=== PATIENT | female | born 1950 | race Caucasian/White ===

== ENCOUNTER 2016-06-22 10:50 | Outpatient (CLI) | payer MEDICARE, MEDICAID ==
[~2016-06-22] VITALS: Ht 158.8 cm; Wt 79.5 kg
--- NOTE | ~2016-06-22 | HEMODYNAMI ---
PATIENT:ZULY MARES MEDICAL RECORD: [id number] : 50 LOCATION:[facility] ADMISSION DATE: 06/22/16 Generatedon:06/22/201614:03 Patient name: ZULY MARES Patient #: [id number] : 1950 Date of study: 06/22/2016 Page: Of Hemodynamic Procedure Report Patient Data Patient Demographics Procedure consent was obtained First Name: ZULY Gender: Female Last Name: VISHNU : 1950 [facility] Initial: RAVINDER Age: 66 year(s) Patient #: [id number] Race: SSN: [id number] Additional ID: [id number] Contact details Address: [address] [place] [address] State: [place] City: [facility] Zip code: [address] Past Medical History Allergies Allergen Reaction Date Comments Reported Aspirin 03/13/2014 Bactrim 03/13/2014 Other allergy 03/13/2014 vitamin A NEURONTIN Aspirin 06/22/2016 Admission Admission Data Admission Date: 06/22/2016 Admission Time: 10:50 Lab Results Lab Result Date: 06/22/2016 Lab Result Time: 0:00 Biochemistry Name Units Result Min Max Creatinine mg/dl 1.3 --(---*)-- 0.6 1.3 CBC Name Units Result Min Max Hemoglobin g/dl 10.1 *-(----)-- 13.5 17.5 Procedure Procedure Types Cath Procedure Diagnostic Procedure LHC LHC w/Coronaries Miscellaneous Procedures Moderate Sedation up to 15 minutes Procedure Description Procedure Date Procedure Date: 06/22/2016 Procedure Start Time: 13:46 Procedure End Time: 14:03 Procedure Staff Name Function Evelio Shell MD Performing Physician Cas Ferreira RT Scrub Obinna Scales RN Nurse Dee Guerra RT Monitor Procedure Data Cath Procedure Fluoroscopy Diagnostic fluoroscopy Total fluoroscopy Time: 1.2 time: 1.2 min min Diagnostic fluoroscopy Total fluoroscopy dose: 342 dose: 342 mGy mGy Contrast Material Contrast Material Type Amount (ml) Isovue 300 64 Entry Location Entry Primary Successful Side Size Upsize Upsize Entry Closure Succes sful Closure Location (Fr) 1 (Fr) 2 (Fr) Remarks Device Remarks Radial Right 6 Fr Unable artery Short to access artery Femoral Right 5 Fr Exoseal artery Estimated blood loss: 5 ml Diagnostic catheters Device Type Used For End Catheter Placement Cordis 5Fr JL 4.0 Left Coronary Catheter (MP) Angiography Cordis 5Fr 3DRC Catheter Right Coronary (MP) Angiography Cordis 5Fr Pigtail LV Angiography Catheter (MP) Procedure Complications No complications Procedure Medications Medication Administration Route Dosage Oxygen NC 2 l/min Heparin Flush Bag added to field 2 bags (1000units/500ml NS) 0.9% NaCl I.V. 100 ml/hr Fentanyl I.V. 100 mcg Versed I.V. 2 mg Fentanyl I.V. 50 mcg Fentanyl I.V. 50 mcg Hemodynamics Rest HGB: 10.1 (g/dl) Heart Rate: 68 (bpm) Pressure Samples Time Site Value (mmHg) Purpose Heart Use Rate(bpm) 13:57 LV 438/434,270 EDP 72 13:57 LV 127/2,20 EDP 71 13:57 AO 117/57(80) Pullback 67 13:57 LV 124/15,17 Pullback 67 Gradients Valve Time Site 1 Site 2 Mean SEP/DFP Peak To Heart Use (mmHg) (sec/min) Peak Rate (mmHg) (bpm) Aortic 13:57 LV AO 13 19 7 67 124/15,17 117/57(80) Calculations Valve P-P Mean Valve Index Valve Source Name Gradient Area Flow (cm2) Aortic 7 13 7 13 Snapshots Pre Cath Intra NCS Post Cath Vital Signs Time Heart Resp SPO2 etCO2 [id number] NIBP (mmHg) Rhythm Pain Sedation Rate (ipm) (%) (mmHg) (mmHg) Status Level (bpm) 13:34:27 67 17 100 0 0 144/76(124) NSR 0 (11) 10(A) , No pain 13:38:47 67 17 100 0 0 142/69(111) NSR 0 (11) 10(A) , No pain 13:43:05 71 17 95 0 0 122/65(105) NSR 0 (11) 10(A) , No pain 13:47:21 68 18 93 0 0 122/61(100) NSR 0 (11) 9(A) , No pain 13:51:33 68 19 92 0 0 119/66(85) NSR 0 (11) 9(A) , No pain 13:55:41 71 18 94 0 0 104/66(87) NSR 0 (11) 9(A) , No pain 13:59:51 72 18 96 0 0 118/61(88) NSR 0 (11) 9(A) , No pain Medications Time Medication Route Dose Verified Delivered Reason Notes Effec tiveness by by 13:35:30 Oxygen NC 2 Obinna Obinna Per l/min Yordy Scales RN physician RN 13:35:39 Heparin Flush added 2 Obinna Obinna used for Bag to bags Yordy Scales RN procedure (1000units/500ml field RN NS) 13:35:53 0.9% NaCl I.V. 100 Obinna Obinna Per ml/hr Yordy Scales RN physician RN 13:45:08 Fentanyl I.V. 100 Obinna Obinna for [facility] Yordy Scales RN sedation RN 13:45:14 Versed I.V. 2 mg Obinna Obinna for Yordy Scales RN sedation RN 13:53:20 Fentanyl I.V. 50 Obinna Obinna for ron Scales RN sedation RN 13:56:33 Fentanyl I.V. 50 Obinna Obinna for [facility] Yordy Scales RN sedation intelligent systems engineer Log Time Note 13:14:04 Lab Result : Creatinine 1.3 mg/dl 13:14:04 Lab Result : Hemoglobin 10.1 g/dl 13:14:14 Diagnostic Cath status Elective 13:14:16 Obinna Scales RN sent for patient. Start room use. 13:14:17 Time tracking: Regular hours 13:14:21 Plan of Care:Hemodynamics will remain stable., Cardiac rhythm will remain stable., Comfort level will be maintained., Respiratory function will remain adequate., Patient/ family verbilizes understanding of procedure., Procedure tolerated without complication., Recovers from procedure without complications.. 13:24:34 Patient received from Pre/Post Procedure Room to [facility] 1 Alert and oriented. Tansferred to table in Supine position. 13:24:35 Warm blankets applied, and domenico hugger turned on for patient comfort. 13:24:35 Correct patient and procedure confirmed by team. 13:24:36 Signed procedure consent form obtained from patient. 13:24:38 ECG and BP/O2 sat monitors applied to patient. 13:24:38 Full Disclosure recording started 13:33:17 Vital chart was started 13:35:30 Oxygen 2 l/min NC was administered by Obinna Scales RN; Per physician; 13:35:32 Baseline sample Acquired. 13:35:34 Rhythm: sinus rhythm 13:35:39 Heparin Flush Bag (1000units/500ml NS) 2 bags added to field was administered by Obinna Scales RN; used for procedure; 13:35:47 H&P Date Dictated: 06/10/2016 Within 30 days and on chart., H&P Addendum completed by physician on day of procedure. (MUST COMPLETE FOR ALL OUTPATIENTS). 13:35:49 Pre-procedure instructions explained to patient. 13:35:51 Pre-op teaching completed and patient verbalized understanding. 13:35:53 0.9% NaCl 100 ml/hr I.V. was administered by Obinna Scales RN; Per physician; 13:35:55 Family in waiting room. 13:35:57 Patient NPO since Midnight. 13:36:06 Patient allergic to Aspirin 13:36:09 Is the patient allergic to Iodine/contrast media? No. 13:36:10 Is patient on blood thinner?Yes 13:36:13 ACC The patient was administered the following blood thiners within the last 24 hours: ACCPlavix 13:36:15 Patient diabetic? Yes. 13:36:16 If diabetic: On Metformin? No 13:36:19 Previous problem with sedation/anesthesia? No ? 13:36:20 Snore? Yes 13:36:21 Sleep apnea? No 13:36:22 Deviated septum? No 13:36:23 Opens mouth fully? Yes 13:36:24 Sticks out tongue? Yes 13:36:28 Airway obstruction? Yes Asthma 13:36:31 Dentures? No ? 13:36:34 Pre procedure: right dorsailis pedis pulse 2+ Normal; easily identifiable; not easily obliterated 13:36:37 Modified Mando's test Ulnar < 7 seconds 13:36:39 Patient pain scale 0/10 ?. 13:36:44 IV patent on arrival in left hand with 0.9% NaCl at [facility]. 13:36:50 Lab results completed and on chart. 13:36:56 Right Radial & Right Groin area was prepped with chlora-prep and draped in sterile fashion 13:36:56 Alarms reviewed by R. N. 13:36:57 Sharps counted by scrub and verified by R.N. 13:37:01 Use device set Radial Dx 13:37:02 Acist Syringe opened to sterile field. 13:37:03 Medline Cath Pack opened to sterile field. 13:37:03 Bag Decanter opened to sterile field. 13:37:04 Terumo 6Fr Slender Glidesheath opened to sterile field. 13:37:05 St Shaquille 260cm J .035 wire opened to sterile field. 13:37:05 Acist Hand Control opened to sterile field. 13:37:06 Acist Manifold opened to sterile field. 13:37:06 Tegaderm 4 x 4 opened to sterile field. 13:37:07 MBrace Wrist Support opened to sterile field. 13:44:31 Final Timeout: patient, procedure, and site verified with staff and physician. All members of the team are in agreement. 13:44:34 Right Radial site verified by team. 13:44:37 Physical assessment completed. ASA score P 2 - A patient with mild systemic disease as per Evelio Shell MD. 13:44:40 Sedation plan: IV Moderate Sedation Versed, Fentanyl 13:44:46 Procedure started. 13:45:08 Fentanyl 100 mcg I.V. was administered by Obinna Scales RN; for sedation; 13:45:14 Versed 2 mg I.V. was administered by Obinna Scales RN; for sedation; 13:46:32 Local anesthetic to right radial artery with Lidocaine 2% by Evelio Shell MD.INITIAL ACCESS ONLY 13:46:42 A 6 Fr Short sheath was inserted into the Right Radial arteryUnable to access artery 13:48:40 Zero performed for pressure channel P1 13:51:02 Use device set Multipack Set 13:51:04 Terumo 5Fr [place] Sheath opened to sterile field. 13:51:04 Diagnostic Infinity 5Fr Multipack catheter opened to sterile field. 13:52:17 Local anesthetic to right femoral artery with Lidocaine 2% by Evelio Shell MD.ADDITIONAL ACCESS 13:52:24 A 5 Fr sheath was inserted into the Right Femoral artery 13:52:36 A Cordis 5Fr JL 4.0 Catheter (MP) was advanced over the wire and used for Left Coronary Angiography. 13:53:20 Fentanyl 50 mcg I.V. was administered by Obinna Scales RN; for sedation; 13:54:25 Catheter removed. 13:55:11 A Cordis 5Fr 3DRC Catheter (MP) was advanced over the wire and used for Right Coronary Angiography. 13:55:42 Catheter removed. 13:56:18 A Cordis 5Fr Pigtail Catheter (MP) was advanced over the wire and used for LV Angiography. 13:56:33 Fentanyl 50 mcg I.V. was administered by Obinna Scales RN; for sedation; 13:57:40 LV gram done using MURPHY 13:57:41 LV hemodynamics recorded. 13:57:43 Injector settings: Ml/sec: 10, Volume: 20, 13:57:46 Catheter removed. 13:57:54 Cordis 5Fr Exoseal opened to sterile field. 13:58:12 Sheath removed intact; hemostasis achieved with Exoseal to the Right Femoral artery. 13:58:14 Procedure ended.(Physican Out) 13:59:29 Fluoroscopy time 01.20 minutes. 13:59:34 Flurop Dose total: 342 13:59:34 Fluoroscopy dose: 342 mGy 13:59:42 Contrast amount:Isovue 300 64ml. 13:59:44 Sharps counted by scrub and verified by R.N. 13:59:45 Insertion/operative site no bleeding no hematoma. 13:59:48 Post-op/insertion site Right Femoral artery dressed using a 4 x 4 and Tegaderm. 13:59:52 Post right femoral artery:stable, clean and dry 13:59:58 Post Procedure Pulses reassessed and unchanged 14:00:11 Post-procedure physical assessment completed. ASA score P 2 - A patient with mild systemic disease as per Evelio Shell MD. 14:00:13 Post procedure rhythm: unchanged. 14:00:15 Estimated blood loss: 5 ml 14:00:18 Post procedure instruction explained to patient.Patient verbalizes understanding. 14:00:19 Patient needs reinforcement of post procedure teaching. 14:00:40 Procedure type changed to Cath procedure, Diagnostic procedure, LHC, LHC w/Coronaries, Miscellaneous Procedures, Moderate Sedation up to 15 minutes 14:00:44 Procedure Complication : No complications 14:00:46 See physician's report for complete and final results. 14:01:33 Procedure and supply charges have been captured, reviewed, submitted and are correct. 14:03:25 Vital chart was stopped 14:03:27 Report given to Pre/Post Procedure Room. 14:03:29 Patient transfered to Pre/Post Procedure Room with Stretcher. 14:03:32 Procedure ended. 14:03:32 Full Disclosure recording stopped 14:03:37 End room use (Document Last) Device Usage Item Name Manufacture Quantity Catalog Hospital Part Current Minimal Lot# / Number Charge Number Stock Stock Serial# Code Acist Acist 1 16447 454372 092484 824580 20 Syringe Medical Systems Inc Medline Cardinal 1 [id number] 749042 69927 994270 5 Cath Pack Health Bag Microtek 1 909446 25026 130479 5 APE Systems Medical Inc. Terumo 6Fr Terumo 1 [id number] 359070 159861 695695 [address] St Shaquille 1 764225 040598 332694 341514 30 260cm J .035 wire Acist Hand Acist 1 38338 335560 880556 591615 5 Control Medical Systems Inc Acist Acist 1 84466 063417 860462 348079 5 Manifold Medical Systems Inc Tegaderm 4 3M 1 1626W 579218 868839 236820 5 x 4 MBrace Advanced 1 140-0250-00 929640 07183 239699 5 Wrist Vascular Support Dynamics Terumo 5Fr Terumo 1 [id number] 329823 943372 818684 40 [place] Sheath Diagnostic Cardinal 1 [id number] 412772 12307 707109 30 Infinity Health 5Fr Multipack catheter Cordis 5Fr Cardinal 1 933467 5 JL 4.0 Health Catheter (MP) Cordis 5Fr Cardinal 1 700418 5 3DRC Health Catheter (MP) Cordis 5Fr Cardinal 1 945218 5 Pigtail Health Catheter (MP) Cordis 5Fr Cardinal 1 EX500 681884 365380 335625 10 Pressy Signature Audit [place] Stage Time Signature Unsigned Intra-Procedure 06/22/2016 Dee 2:03:46 PM Counts RT(R) Signatures Monitor : Dee Signature : Counts RT Date : Time : [address] [place] [address]
[~2016-06-22 10:50] MED LIST: ACCUPRIL5 MG PO; ACETAMINOPHEN500 M1 PO; ASMANEX0.24 GM INH; COREG6.25 MG PO; DULERA 100 MCG8.8 GM INH; GLIMEPIRIDE4 MG PO; LANTUS INSULIN10 ML SQ; LYRICA25 MG PO; NOVOLOG100 U/M1 SC; PLAVIX75 MG PO; PLENDIL; PLETAL100 MG PO; PRAVACHOL40 MG PO; PRILOSEC20 MG PO; PROAIR HFA8.5 GM INH; PROTONIX40 MG PO; RESTASIS EYE DR30 EA EACH EYE; TOPAMAX25 MG PO; ZYRTEC10 MG PO
[2016-06-22 11:48] VITALS: BP 157/63; Ht 158.8 cm; Wt 79.5 kg
[2016-06-22 11:51] LABS: BASOPHILS 1.2 % (0.0-2.0); EOSINOPHILS 3.4 % (0-7); HEMATOCRIT 31.7 % (36.0-48.0); HEMOGLOBIN 10.1 g/dL (12-16); IMMATURE GRANULOCYTES 0.2 % (0-5); LYMPHOCYTES 19.5 % (15-50); MCH 29.9 pg (26.0-34.0); MCHC 31.9 g/dL (31.0-37.0); MCV 93.8 fL (80.0-100.0); MEAN PLATELET VOLUME 9.3 fL (7.4-10.4); MONOCYTES 7.7 % (2-11); PLATELET COUNT 237 10x3/uL (130-400); RBC 3.38 10x6/uL (4.00-5.40); RDW 13.1 % (11.5-14.5); WBC 6.5 10x3/uL (4.8-10.8)
[2016-06-22] MEDS ORDERED: PROVENTIL HFA6.7 GM INH (11:52)
[2016-06-22] MEDS ORDERED: SINGULAIR10 MG PO (11:55)
[2016-06-22 12:04] LABS: ANION GAP 15.6 mmol/L (8-16); CALCIUM 8.7 mg/dL (8.5-10.1); CARBON DIOXIDE 21.4 mmol/L (21.0-32.0); CREATININE - SERUM 1.3 mg/dL (0.6-1.3)
--- NOTE | 2016-06-22 16:38 | NUR ---
1430-RIGHT WRIST CDI AND RIGHT GROIN CDI, NO HEMATOMA OR BLEEDING NOTED. 1500-NO CHANGES
--- NOTE | 2016-06-23 08:42 | OP ---
PATIENT NAME: ZULY MARES MEDICAL RECORD: [id number] :[birth year] LOCATION:D.CAT ADMISSION DATE: SURGEON: JORGE MATA MD DATE OF OPERATION: 06/22/2016 PROCEDURE: Left heart catheterization, selective coronary angiography, right femoral artery approach. CATHETERS: A 5-Montserratian sheath, 5/4 left and right Jefe, 5/4 pig. The procedure was well tolerated and the patient returned to the [place], sheath removed. Adequate hemostasis obtained. FINDINGS: Left ventriculography in the 30-degree MURPHY view: Normal wall motion and normal systolic function. CORONARY ANATOMY: Left main: Left main is free of disease. LAD: LAD has a proximal to mid portion stenosis of about 70%. That vessel reaches the apex but does not wrap around. CIRCUMFLEX: Circumflex has a large OM1, has about 80% stenosis. The true circumflex itself has about 70% proximal stenosis. RIGHT CORONARY ARTERY: Totally occluded and fills via left to right collaterals. IMPRESSION: Multivessel coronary artery disease, multiple interventions in the past given her underlying diabetes, ____ for coronary bypass grafting. Dr. Richardson will be consulted for this purpose. TRANSINT:[id number] Voice Confirmation ID: [id number] DOCUMENT ID: [id number] JORGE MATA MD at 0842 CC: [id number] DICTATION DATE: 06/22/16 1404 LICENSED SALES ASSISTANT: 06/22/16 2018 [facility] CLI 06/22/16 [place] [id number]
== END 2016-06-22 16:15 | disposition home or self-care (01) ==
LOC: D.CATH 10:50
PROVIDERS: Internal Medicine Interventional Cardiology
DX: I25.119 Atherosclerotic heart disease of native coronary artery with unspecified angina pectoris (principal); E78.5 Hyperlipidemia, unspecified; I10 Essential (primary) hypertension; J44.9 Chronic obstructive pulmonary disease, unspecified

== ENCOUNTER → 2016-07-02 13:08 | Outpatient (CLI) | payer MEDICARE, MEDICAID ==
[2016-06-22 11:48] VITALS: BMI 31.5
[~2016-07-02 13:08] MED LIST changes: +PROVENTIL HFA6.7 GM INH; +SINGULAIR10 MG PO
[2016-07-03 09:12] LABS: HEPATITIS C ANTIBODY <0.1 (0.0-0.9)
== END | disposition home or self-care (01) ==
LOC: D.LAB 13:08
PROVIDERS: Internal Medicine Cardiovascular Disease
DX: Z01.812 Encounter for preprocedural laboratory examination (principal)

== ENCOUNTER → 2016-07-09 07:36 | Outpatient (CLI) | payer MEDICARE, MEDICAID ==
[2016-06-22 11:48] VITALS: BMI 31.5
== END | disposition home or self-care (01) ==
LOC: D.RT 07:36
DX: R06.02 Shortness of breath (principal); I65.23 Occlusion and stenosis of bilateral carotid arteries

== ENCOUNTER 2017-01-03 16:12 | Inpatient (IN) | payer MEDICARE, MEDICAID ==
[2017-01-03 17:14] LABS: BASOPHILS 0.3 % (0-2); EOSINOPHILS 0.6 % (0-7); HEMATOCRIT 28.5 % (36.0-48.0); HEMOGLOBIN 9.6 g/dL (12-16); IMMATURE GRANULOCYTES 0.5 % (0-5); MCH 29.6 pg (26.0-34.0); MCHC 33.7 g/dL (31.0-37.0); MEAN PLATELET VOLUME 9.9 fL (7.4-10.4); NEUTROPHILS 85.6 % (40-80); PLATELET COUNT 243 10x3/uL (130-400); RBC 3.24 10x6/uL (4.00-5.40); RDW 13.4 % (11.5-14.5); WBC 15.5 10x3/uL (4.8-10.8)
[2017-01-03 17:50] LABS: ALBUMIN 2.1 g/dL (3.4-5.0); ANION GAP 21.8 mmol/L (8-16); BILIRUBIN - TOTAL 0.62 mg/dL (0.2-1.3); CARBON DIOXIDE 14.9 mmol/L (21.0-32.0); CREATININE - SERUM 1.6 mg/dL (0.6-1.3); POTASSIUM - SERUM 3.7 mmol/L (3.5-5.1); PROTEIN - SERUM 5.6 g/dL (6.4-8.2); TROPONIN-I 0.054 ng/mL (0.000-0.060)
[2017-01-03 18:02] LABS: CALCIUM 7.9 mg/dL (8.5-10.1)
[2017-01-03 20:00] VITALS: BP 153/55
--- NOTE | 2017-01-03 20:48 | NUR ---
patient arrived from the ER via wheelchair, iv in left forearm. patient is alert and oriented to room and call light. family is at bedside. call light in reach.
[2017-01-03 21:11] VITALS: BP 153/55; BMI 30.6
--- NOTE | 2017-01-03 21:49 | NUR ---
PATIENT IS ALERT WATCHING TV, SPOUSE AT BEDSIDE. PATIENT REFUSES TO TAKE ANY TYPE OF INSULIN TONIGHT. CALL LIGHT IN REACH.
--- NOTE | 2017-01-04 01:15 | NUR ---
ASSESSMENT COMPLETED PER ADMIT PACKET. EYES CLOSED RESPIRATIONS WITH EASE AND UNLABORED.
[2017-01-04 04:00] VITALS: BP 141/56
[2017-01-04 05:50] LABS: ANION GAP 21.4 mmol/L (8-16); CALCIUM 7.5 mg/dL (8.5-10.1); CARBON DIOXIDE 14.8 mmol/L (21.0-32.0); CREATININE - SERUM 1.5 mg/dL (0.6-1.3); POTASSIUM - SERUM 4.2 mmol/L (3.5-5.1)
[2017-01-04 06:03] LABS: BASOPHILS 0.4 % (0-2); EOSINOPHILS 0.7 % (0-7); HEMATOCRIT 26.3 % (36.0-48.0); HEMOGLOBIN 8.7 g/dL (12-16); IMMATURE GRANULOCYTES 0.2 % (0-5); LYMPHOCYTES 6.9 % (15-50); MCH 29.4 pg (26.0-34.0); MCHC 33.1 g/dL (31.0-37.0); MCV 88.9 fL (80.0-100.0); MONOCYTES 6.6 % (2-11); NEUTROPHILS 85.2 % (40-80); PLATELET COUNT 247 10x3/uL (130-400); RBC 2.96 10x6/uL (4.00-5.40); RDW 13.7 % (11.5-14.5)
--- NOTE | 2017-01-04 07:40 | NUR ---
REPORT RECEIVED FROM OPERATIONS CONTROLLER NURSE. CALL LIGHT IN REACH.
--- NOTE | 2017-01-04 08:21 | NUR ---
ASSESSMENT COMPLETED. AM MEDS ADMINISTERED EXCEPT FOR ALFONSO AND TOPAMAX. STATES SHE DOES NOT TAKE TOPAMAX ANYMORE AND SHE TAKES ALFONSO AT NIGHT. SCDs EXPLAINED AND APPLIED TO BLE. CARE PLAN WRITTEN ON BOARD AND REVIEWED WITH PATIENT. TYLENOL PO PER C/O 10 TO RIGHT CHEST. STATES SHE WANTED A PAIN CREAM THAT SHE USED TO TAKE WHEN SHE ORTHO SURGERY. EXPLAINED TO PATIENT THAT WE DO NOT GIVE THAT. VERBALIZED UNDERSTANDING. [place] HAT PLACED IN BR FOR URINE MEASUREMENT. PASSWORD OBTAINED AND PLACED IN COMPUTER. IV TUBING LABELED. CALL LIGHT IN REACH. WILL CONTINUE WITH PLAN OF CARE.
[2017-01-04 08:30] VITALS: BP 148/62
--- NOTE | 2017-01-04 10:00 | NUR ---
NO NEEDS VOICED AT THIS TIME. CALL LIGHT IN REACH.
[2017-01-04 11:39] VITALS: BP 138/54
--- NOTE | 2017-01-04 12:45 | NUR ---
WENT TO TAKE PATIENT'S BLOOD SUGAR AND IT WAS 516. STATES IT IS SO HIGH BECAUSE WE HAVE NOT GIVEN HER HER INSULIN TODAY. EXPLAINED TO PATIENT THAT I HAVE GIVEN HER HER LANTUS AND THE FALL INTERN GAVE HER HUMALOG @ 0618. PATIENT STARTED ARGUING ABOUT NOT HAVING HER INSULIN. I EXPLAINED TO HER OVER AND OVER IN FRONT OF HER FAMILY. HER SON EVEN SAID THAT SHE NEEDS TO LISTEN BUT PATIENT CONTINUED TO ARGUE. SHE THEN GOT MAD THAT I HAD TO GIVE HER EYE DROPS BECAUSE SHE'S HAD THEM ONCE TODAY. I EXPLAINED TO HER THAT THEY ARE ORDERED MORE THAN ONCE A DAY. HER SON KEPT ASKING PATIENT TO LISTEN TO ME BUT SHE WOULDN'T. I WENT TO GET THE CHARGE NURSE TO EXPLAIN TO HER. PATIENT THEN SAID SHE KNEW I HAD GIVEN HER THE INSULIN.
--- NOTE | 2017-01-04 13:45 | NUR ---
PT REC'D FROM MANUEL SENIOR. SITTING UP IN BED WITH AT BEDSIDE. AAOX4. NO COMPLAINTS. RATING CURRENT GENERALIZED PAIN 6/10. PT STATES SHE DOES NOT WANT ANY TYLENOL BECAUSE IT DOESN'T WORK. REGULAR HEART RATE AND RHYTHM. LUNG SOUNDS HAVE CRACKLES AND RHONCHI NOTED TO BILAT UPPER LOBES. DIMINISHED BILAT TO LOWER LOBES. BOWEL SOUNDS ACTIVE X4 QUADS. SKIN CLEAN, DRY, AND INTACT. PIV TO L AC FREE OF REDNESS AND SWELLING. SCD'S ON. BED LOW, CALL LIGHT IN REACH, DENIES NEEDS. CPOC.
--- NOTE | 2017-01-04 14:02 | NUR ---
patient recieved 12 units of insulin at this time for bs 547. iv intact. no complaints. call light within reach.
--- NOTE | 2017-01-04 14:05 | NUR ---
HANDED PATIENT OVER TO MANUEL ZAMBRANO.
[2017-01-04 15:07] VITALS: BP 136/60
--- NOTE | 2017-01-04 16:30 | NUR ---
CURRENT FSBS 448. HAS COME DOWN FROM 547. DR. GUPTA AWARE. 12 UNITS OF INSULIN ADMINISTERED PER SS. BED LOW, CALL LIGHT IN REACH, DENIES NEEDS. CPOC.
[2017-01-04 20:00] VITALS: BP 133/56
--- NOTE | 2017-01-04 23:24 | NUR ---
PATIENT IS RESTING WELL IN BED, SPOUSE IS AT BEDSIDE. CALL LIGHT IN REACH.
[2017-01-05 04:00] VITALS: BP 119/85
--- NOTE | 2017-01-05 08:08 | NUR ---
AWAKE AND ALERT. ORIENTED X3. NO C/O AT THIS TIME. LUNGS ARE CLEAR ON LEFT BUT DIMINISHED ON RIGHT SIDE. REPORTS PRODUCTIVE COUGH WITH BROWNISH SPUTUM. SKIN IS INTACT WITHOUT REDNESS. IV TO LEFT AC IS PATENT WITHOUT REDNESS AT INSERTION SITE. AT BEDSIDE. DENIES NEEDS.
[2017-01-05 08:11] VITALS: BP 119/72
--- NOTE | 2017-01-05 10:43 | NUR ---
UP IN CHAIR AT BEDSIDE. LINENS CHANGED PER STAFF. WILL ASSIST WITH SHOWER.
--- NOTE | 2017-01-05 12:00 | NUR ---
FSBS 193. GIVEN 2 UNITS HUMALOG SUBQ PER SS.
[2017-01-05 12:35] VITALS: BP 143/61
--- NOTE | 2017-01-05 13:25 | NUR ---
ATE ALL OF LUNCH. C/O UPPER CHEST AND BACK PAIN LEVEL 10. REQUESTED AND GIVEN ONE 500MG TYLENOL FOR SAME. WILL MONITOR. LUNGS ARE UNCHANGED FROM THIS AM. SKIN IS WARM AND DRY. HEART RATE IS 76 AND REGULAR.
[2017-01-05 17:27] VITALS: BP 122/82
--- NOTE | 2017-01-05 18:00 | NUR ---
REQUESTED AND GIVEN ONE PERCOCET PO FOR PAIN MANAGEMENT PROIR TO PLACING CPM. PLACED ON LEFT KNEE AT THIS TIME..ATE MOST OF SUPPER. DENIES NEEDS. NO CHANGES NOTED.
[2017-01-05 20:00] VITALS: BP 153/58
--- NOTE | 2017-01-05 23:46 | NUR ---
PATIENT LYING IN BED ALERT C/O OF NAUSEA, ZOFRAN 4 MG GIVEN IV. CALL LIGHT IN REACH. WILL CONTINUE TO MONITOR. SPOUSE IS AT BEDSIDE.
[2017-01-06] VITALS: BP 135/58
[2017-01-06 04:00] VITALS: BP 136/56
[2017-01-06 05:17] LABS: BASOPHILS 0.7 % (0-2); EOSINOPHILS 4.2 % (0-7); HEMATOCRIT 25.3 % (36.0-48.0); HEMOGLOBIN 8.3 g/dL (12-16); IMMATURE GRANULOCYTES 1.6 % (0-5); MCH 29.6 pg (26.0-34.0); MCHC 32.8 g/dL (31.0-37.0); MCV 90.4 fL (80.0-100.0); MEAN PLATELET VOLUME 9.8 fL (7.4-10.4); MONOCYTES 9.9 % (2-11); NEUTROPHILS 66.6 % (40-80); RDW 14.1 % (11.5-14.5)
[2017-01-06 05:26] LABS: PLATELET COUNT 299 10x3/uL (130-400)
[2017-01-06 05:35] LABS: ANION GAP 18.3 mmol/L (8-16); CALCIUM 8.2 mg/dL (8.5-10.1); CARBON DIOXIDE 17.5 mmol/L (21.0-32.0); CREATININE - SERUM 1.2 mg/dL (0.6-1.3); POTASSIUM - SERUM 3.8 mmol/L (3.5-5.1)
--- NOTE | 2017-01-06 07:15 | NUR ---
RECIEVED REPORT ON PATIENT, PATIENT IS ALERT AND ORIENTED AT THIS TIME. PATIENT HAS A L AC IV THAT IS INFUSING WITH NS AT 100ML/HR. PATIENT RESTING, DENIES ANY NEEDS AT THIS TIME. BED IS LOW AND LOCKED. CALL LIGHT IN REACH. CPOC
[2017-01-06 08:55] VITALS: BP 156/63
--- NOTE | 2017-01-06 09:45 | NUR ---
MORNING MEDICATION GIVEN, ASSESSMENT DONE. DENIES ANY NEEDS. CPOC
[2017-01-06 11:29] VITALS: BP 175/75
--- NOTE | 2017-01-06 11:30 | NUR ---
FSBS 251 6 UNITS OF HUMALOG GIVEN. CPOC
--- NOTE | 2017-01-06 12:00 | NUR ---
PATIENT SITTING UP IN BED EATING LUNCH, DENIES ANY NEEDS AT THIS TIME. CPOC
--- NOTE | 2017-01-06 12:45 | NUR ---
Patient Name: ZULY NELSON Admission Status: ER Accout number: [id number] Admission Date: 01-03-2017 : 1950 Admission Diagnosis:UNSPECIFIED BACTERIAL PNEUMONIA Attending: CIERRA GUPTA Current LOS: 3 Anticipated DC Date: Planned Disposition: Home Primary Insurance: [facility] Discharge Planning Comments: CM met with patient and (Aleks) to assess discharge planning needs. Patient lives independently with her where she plans to return to on discharge. Patient denies having any steps to enter in her home and denies using or having any medical equipment at home. CM will continue to follow and assist with discharge planning needs. PCP: Wale mckeon Aleks Nelson () [phone] Boom Man: Kaci Ceron * Is the patient Alert and Oriented? Yes 0 * How many steps to enter\exit or inside your home? 0 0 * PCP [facility] 0 * Pharmacy [facility] 0 * Preadmission Environment Home with Family 0 * ADLs Independent 0 * Equipment None 0 * List name and contact numbers for known caregivers / representatives who currently or will assist patient after discharge: Aleks () [phone] * Community resources currently utilized None 0 * Additional services required to return to the preadmission environment? No 0 * Can the patient safely return to the preadmission environment? Yes 0 * Has this patient been hospitalized within the prior 30 days at any hospital? No 0 Grand Total: 0
--- NOTE | 2017-01-06 14:00 | NUR ---
PATIENT REQUESTING TO GO HOME, INFORMED PATIENT I WOULD SPEAK WITH DR GUPTA. CPOC
--- NOTE | 2017-01-06 16:30 | NUR ---
PATIENT FSBS 222, 4 UNITS OF HUMALOG GIVEN. CPOC
--- NOTE | 2017-01-06 16:45 | NUR ---
DR GUPTA AT BEDSIDE, IS GOING TO DC PATIENT. CPOC
[2017-01-06] MEDS ORDERED: AUGMENTIN 875-11 TAB PO (16:58)
--- NOTE | 2017-01-06 17:45 | NUR ---
[id number] GIVEN DC INSTRUCTIONS, SIGNED PAPER WORK. IV DC WITH CATH TIP INTACT. PATIENT DENIES ANY QUESTIONS. PATIENT READY FOR DC
--- NOTE | 2017-01-07 09:58 | NUR ---
set up a p2p with dr echevarria 01/06/17, the medical records field technician dr Dulce Maria Soto will be calling Dr Echevarria tomorrow for the P2P. all information sent with dr echevarria so he would have the information to talk to the doctor
--- NOTE | 2017-01-26 20:10 | HP ---
PATIENT: ZULY MARES MEDICAL RECORD: [id number] ACCOUNT: [id number] LOCATION:D.MS [place]8 : 50 ADMISSION DATE: 01/03/17 HISTORY AND PHYSICAL EXAMINATION DATE OF ADMISSION: 01/03/2017 DATE I SAW HER FOR ADMISSION: 01/04/2017 CHIEF COMPLAINT: Cough, shortness of breath. HISTORY OF PRESENT ILLNESS: This is a 66-year-old white female with known history of asthma, has had several upper and lower respiratory tract infections. She came in to the hospital the evening of 01/03/2017 complaining of increased shortness of breath for the last 3 days. She denied any chest pain. She felt weak, hurt all over. She just wanted to sleep all the time. Workup in the Emergency Department; EKG showed normal sinus rhythm. Chest x-ray showed consolidative opacity in the right upper lobe consistent with pneumonia. Her white count was elevated at 15,500 and she was wheezing. Cardiac enzymes were negative. She was admitted for acute bacterial pneumonia. PAST MEDICAL AND SURGICAL HISTORY: She has diabetes, poorly controlled asthma, hyperlipidemia, hypertension, peripheral neuropathy, coronary artery disease, and peripheral artery disease. PAST SURGICAL HISTORY: She has had cholecystectomy. She has had cardiac stents. ALLERGIES: REPORTEDLY THE ASPIRIN, SULFA, LEVAQUIN, GABAPENTIN, AND VITAMIN A. HOME MEDICATIONS: Please see MAR for this. HABITS: She never smoked, but has been exposed to secondhand smoke for many years. Denies alcohol or drug use. SOCIAL HISTORY: She is . She does not work outside the home. FAMILY HISTORY: Father at age 80 of heart disease. Mother at age 40 of suicide. The patient has no siblings. REVIEW OF SYSTEMS: GENERAL: No major weight changes. HEENT: She has some seasonal allergies. RESPIRATORY: Long history of asthma. She sees a window systems administrator. CARDIAC: Has history of coronary artery disease and sees electrician constructor supervisor. GASTROINTESTINAL: Has some reflux. GENITOURINARY: No significant problems there. HEMATOLOGY: Has some anemia of uncertain origin. MUSCULOSKELETAL: No significant arthritis. NEUROLOGIC: No seizures. She does have some migraine headaches. PSYCHIATRIC: No depression or melancholia. PHYSICAL EXAMINATION: VITAL SIGNS: Temperature 98.1, pulse 82, respirations 20, blood pressure 121/59. HISTORY AND PHYSICAL [id number] ZULY MARES GENERAL: She is awake and alert. She has audible wheezing. HEENT: Grossly within normal limits. NECK: Supple. No JVD or bruit. HEART: Regular rate and rhythm. LUNGS: With diffuse rales and wheezes bilaterally. ABDOMEN: Soft. EXTREMITIES: No edema. LABORATORY AND DIAGNOSTIC DATA: EKG; normal sinus rhythm. Chest x-ray; consolidation opacity in right upper lobes. CBC showed a white count 15,500, hemoglobin 9.6, hematocrit 28.8, 86% neutrophils. Basic metabolic panel is okay except BUN 35, creatinine 1.6, glucose 167. Liver functions were okay except AST mildly elevated at 57, troponin 0.054. ASSESSMENT: 1. Acute bacterial pneumonia. 2. History of asthma. 3. Poorly controlled diabetic. 4. Coronary artery disease. PLAN: I will start updrafts, Rocephin and Zithromax, place sequential compression devices. Other tests and procedures as warranted. TRANSINT:[id number] Voice Confirmation ID: [id number] DOCUMENT ID: [id number] CIERRA GUPTA MD at 2009 CC: [id number] DICTATION DATE: 01/23/17 162 RASPER MACHINE OPERATOR: 01/23/171910 DIS IN 01/06/17 [facility] [address] [place] [address]
== END 2017-01-06 19:08 | disposition home or self-care (01) | DRG 194 ==
LOC: D.ER 16:12 → D.MS 18:16
PROVIDERS: Emergency Medicine; Family Medicine; ADMIT Family Medicine
DX: J18.9 Pneumonia, unspecified organism (principal); J44.0 Chronic obstructive pulmonary disease with (acute) lower respiratory infection; E11.42 Type 2 diabetes mellitus with diabetic polyneuropathy; I10 Essential (primary) hypertension

== ENCOUNTER 2017-11-28 10:12 | Inpatient (IN) | payer MEDICARE, MEDICAID ==
[~2017-11-28] VITALS: Ht 158.8 cm; Wt 90.9 kg
[2017-11-28] VITALS (7 sets, daily range): BP systolic 139–167; BP diastolic 46–82; Ht 158.8 cm; Wt 90.9 kg
--- NOTE | ~2017-11-28 | HP ---
PATIENT: ZULY MARES MEDICAL RECORD: [id number] ACCOUNT: [id number] LOCATION:D.MS [place]2222 : 50 ADMISSION DATE: 11/28/17 PCP: CIERRA GUPTA MD HISTORY AND PHYSICAL EXAMINATION REASON FOR ADMISSION: Shortness of breath and not feeling well, elevated blood sugars. HISTORY OF PRESENT ILLNESS: The patient is a 67-year-old female, patient of Dr. Marcel Gupta'rambo, with history of asthma, hospitalized in December of last year for pneumonia. She also has type 2 diabetes mellitus from 1995. She states she has never been ketotic but always been on insulin. She says she has not felt well for the last couple of days. She checked her blood sugars 4 times a day, she states, and notes it was going up yesterday. This morning, it was over 500. She was not feeling well and she had marked tachypnea. She came to the ER. She denied any cough, sputum production, fever, dysuria, abdominal pain. She denies any use of alcohol, aspirin, methanol as a cause for her acidosis that was found on blood gas; pH of 7.29, low CO2, and high pO2. Evaluation in the ED did not reveal a cause for her metabolic acidosis except for mild renal azotemia. After 2 bags of IV fluids, she is less tachypneic and feeling better. Repeat BMP is pending. PAST MEDICAL HISTORY: Asthma; pneumonia in 2016; poorly controlled diabetes mellitus; hyperlipidemia; essential hypertension; peripheral neuropathy; CAD, post stent and PTCAs; and peripheral vascular disease. PAST SURGICAL HISTORY: Cholecystectomy and cardiac stents times 6. ALLERGIES: SULFA, ASPIRIN, LEVAQUIN, GABAPENTIN, AND VITAMIN A. FAMILY HISTORY: Both parents are , both had heart disease. She is an only child. Mother had heart disease, but of suicide. SOCIAL HISTORY: She has never smoked, has been exposed to secondhand smoke. Denies alcohol or drug use, aspirin use, or methanol use. SOCIAL HISTORY: She is . She does not work outside the home. HOME MEDICATIONS: Zyrtec 10 mg a day, Ventolin HFA two puffs b.i.d., Plavix 75 mg a day, pravastatin 20 mg at bedtime, Coreg 6.25 mg p.o. b.i.d. with meals, Topamax 25 mg p.o. daily, pregabalin (Lyrica) 100 mg p.o. t.i.d., Dulera 100/5 two puffs b.i.d., Singulair 10 mg at bedtime, cyclosporine (Restasis) eyedrops one drop to each eye every 12 hours, Protonix 40 mg a day, Lantus 25 units subcutaneously b.i.d. a.c. She takes Humalog low sliding scale a.c. meals and at bedtime. REVIEW OF SYSTEMS: CONSTITUTIONAL: No fever. She has been fatigued for few days. HEENT: No recent visual change, sinus congestion, or sore throat. Her mouth has been dry. RESPIRATORY: She has increasing shortness of breath and breathing rapidly this morning. Denied chest pain, sputum production, or hemoptysis. CARDIAC: No palpitation or chest pain. Just shortness of breath at rest. No peripheral edema. ENDOCRINE: Denies polyuria, polydipsia, heat or cold intolerance. HISTORY AND PHYSICAL [id number] ZULY MARES MUSCULOSKELETAL: Admits to arthralgias in her knees and hips. NEUROLOGIC: She has chronic numbness and burning in her feet, for which she takes Lyrica. PSYCHIATRIC: Denies depressed mood. GYNECOLOGICAL: No vaginal bleeding. PHYSICAL EXAMINATION: VITAL SIGNS: Temperature is 98.6; pulse 86 and regular; respirations are 23 initially and now 17; blood pressure 145/82; and sat of 88% initially on room air, now 99%. GENERAL: The patient is alert, oriented, and not tachypneic currently. HEENT: Her eyes are clear with mild lateral deviation of the left eye. Pupils are reactive. Sclerae are nonicteric. Oropharynx has dry mucous membranes. NECK: Supple. CHEST: Faint wheeze in the upper lobes without rales. HEART: Regular rate without gallop or murmur. ABDOMEN: Soft and nontender. EXTREMITIES: No CC&E. NEUROLOGIC: Oriented to person, place, and time. Cranial nerves intact. Gait normal. Balance is good. She has recent decreased sensation to touch in bottoms of both feet and in ankle distribution bilaterally. SKIN: She has a sore area that is raised and draining in the back of her left scalp for about a week. Denies trauma or injury. LABORATORY DATA AND DIAGNOSTIC DATA: Blood sugar was over 500 at home, was over 300 on admission here, initially 344. BUN and creatinine were 24 and 1.9. Serum CO2 was 9.1, potassium 3.4, sodium 137. After 10 units of IV insulin and 2 bags of fluid, her blood sugar is down to 151. Magnesium low at 1.6. Blood gas; 7.26 pH with pCO2 of 16, pO2 of 129, CO2 of 7.2, and base excess of -17.6. H&H 11.1 and 33. Lactic acid high at 7.53. INR is normal. Serum ketones are negative. Salicylate level is low at 2.2. Urinalysis; moderate ketones and moderate bacteria, otherwise unremarkable. Chest x-ray is clear. Her D-dimer is within normal limits. ASSESSMENT: 1. Metabolic acidosis, etiology not clear at this time. It may be due to hyperglycemia, which is improved with hydration and IV insulin. 2. Hypokalemia. 3. Hypomagnesemia. 4. Lactic acidosis secondary to #1. 5. Fatigue. 6. Cellulitis versus kerion versus infected sebaceous cyst, left scalp. 7. Acute renal insufficiency. 8. Diabetes mellitus, poorly controlled. PLAN: We will admit for IV fluids. Check serial blood sugars closely. Recheck BMP concerning her serum CO2 level and make sure her acidosis is improving; if not, we will add bicarbonate. We will attempt to culture the wound on her head and place on empiric antibiotics for that currently. Renal consult if indicated. TRANSINT:[id number] Voice Confirmation ID: [id number] DOCUMENT ID: [id number] HISTORY AND PHYSICAL [id number] ZULY MARES TIMOTHY MD at 2113 CC: [id number] DICTATION DATE: 11/28/17 1631 REHEATER HELPER: 11/28/17 1806 DIS IN 11/30/17 [place] [id number] [place] [id number]
[~2017-11-28 10:12] MED LIST changes: +AUGMENTIN 875-11 TAB PO
[2017-11-28] MEDS ORDERED: HUMALOG 30100 UNITS/ SC (10:37)
[2017-11-28 11:20] LABS: BASOPHILS 0.5 % (0-2); EOSINOPHILS 1.1 % (0-7); HEMATOCRIT 33.8 % (36.0-48.0); HEMOGLOBIN 11.3 g/dL (12-16); IMMATURE GRANULOCYTES 0.2 % (0-5); LYMPHOCYTES 15.6 % (15-50); MCH 30.6 pg (26.0-34.0); MCHC 33.4 g/dL (31.0-37.0); MCV 91.6 fL (80.0-100.0); MEAN PLATELET VOLUME 9.2 fL (7.4-10.4); MONOCYTES 3.6 % (2-11); PLATELET COUNT 270 10x3/uL (130-400); RBC 3.69 10x6/uL (4.00-5.40); RDW 14.2 % (11.5-14.5); WBC 11.2 10x3/uL (4.8-10.8)
[2017-11-28 11:29] LABS: APTT 33.7 SECONDS (22.8-39.4); INR 1.09 (0.85-1.17); PROTIME 13.7 SECONDS (11.6-15.0)
[2017-11-28 11:30] LABS: D-DIMER-QUANTITATIVE 0.31 ug/mLFEU (0.20-0.54)
[2017-11-28 11:46] LABS: KETONE - SERUM NEGATIVE (NEGATIVE)
[2017-11-28 11:48] LABS: ALBUMIN 3.5 g/dL (3.4-5.0); ALKALINE PHOSPHATASE 146 U/L (46-116); ALT (SGPT) 35 U/L (10-68); BILIRUBIN - TOTAL 0.22 mg/dL (0.2-1.3); CALCIUM 8.9 mg/dL (8.5-10.1); CHLORIDE - SERUM 104 mmol/L (98-107); CKMB 4.1 U/L (0.0-3.6); CREATINE KINASE 117 UL (21-215); CREATININE - SERUM 1.9 mg/dL (0.6-1.3); POTASSIUM - SERUM 3.4 mmol/L (3.5-5.1); PROTEIN - SERUM 8.1 g/dL (6.4-8.2); SODIUM 137 mmol/L (136-145); UREA NITROGEN 24 mg/dL (7-18); eGFR NON AFRICAN AMERICAN 28 mL/min (90-120)
[2017-11-28 11:49] LABS: CALC OSMOLALITY 291 mosm/kg (275-300); GLUCOSE 344 mg/dL (74-106); MAGNESIUM - SERUM 1.6 mg/dL (1.8-2.4); TROPONIN-I < 0.017 ng/mL (0.000-0.060)
[2017-11-28 11:51] LABS: CARBON DIOXIDE 9.1 mmol/L (21.0-32.0)
[2017-11-28 14:18] LABS: APPEARANCE CLEAR (CLEAR); BILIRUBIN NEGATIVE (NEGATIVE); COLOR STRAW (YELLOW); GLUCOSE 1000 mg/dL (NEGATIVE); KETONE MODERATE mg/dL (NEGATIVE); NITRITE NEGATIVE (NEGATIVE); PROTEIN TRACE mg/dL (NEGATIVE); SPECIFIC GRAVITY 1.015 (1.005-1.020); UROBILINOGEN NORMAL (NORMAL)
[2017-11-28 14:20] LABS: BACTERIA MODERATE /hpf (NONE SEEN); EPITHELIAL CELLS 0-5 /hpf (0-5); MUCUS <1+ /lpf (NONE SEEN); RED CELLS - URINE OCC /hpf (0-5); WHITE CELLS - URINE 0-5 /hpf (0-5)
[2017-11-28 14:21] LABS: AMORPHOUS SEDIMENT <1+ /lpf (NONE SEEN); GRANULAR CAST OCC /lpf (NONE SEEN)
[2017-11-28 17:20] LABS: CALCIUM 8.1 mg/dL (8.5-10.1); CREATININE - SERUM 1.8 mg/dL (0.6-1.3); POTASSIUM - SERUM 3.6 mmol/L (3.5-5.1)
[2017-11-28 17:22] LABS: CARBON DIOXIDE 12.6 mmol/L (21.0-32.0)
[2017-11-29 04:48] VITALS: BP 107/44
[2017-11-29 05:06] LABS: BASOPHILS 0.8 % (0-2); EOSINOPHILS 3.7 % (0-7); HEMATOCRIT 28.2 % (36.0-48.0); HEMOGLOBIN 9.5 g/dL (12-16); IMMATURE GRANULOCYTES 0.3 % (0-5); LYMPHOCYTES 18.8 % (15-50); MCH 30.3 pg (26.0-34.0); MCHC 33.7 g/dL (31.0-37.0); MCV 89.8 fL (80.0-100.0); MEAN PLATELET VOLUME 9.2 fL (7.4-10.4); MONOCYTES 8.4 % (2-11); PLATELET COUNT 263 10x3/uL (130-400); RBC 3.14 10x6/uL (4.00-5.40); RDW 14.6 % (11.5-14.5)
[2017-11-29 05:15] LABS: WBC 7.4 10x3/uL (4.8-10.8)
[2017-11-29 05:24] LABS: ANION GAP 18.5 mmol/L (8-16); CALCIUM 7.9 mg/dL (8.5-10.1); CREATININE - SERUM 1.7 mg/dL (0.6-1.3); MAGNESIUM - SERUM 1.5 mg/dL (1.8-2.4); POTASSIUM - SERUM 3.6 mmol/L (3.5-5.1)
[2017-11-29 05:25] LABS: CARBON DIOXIDE 16.1 mmol/L (21.0-32.0)
[2017-11-29] MEDS ORDERED: COZAAR100 MG PO (06:10)
[2017-11-29 09:18] VITALS: BP 123/49
[2017-11-29 12:28] VITALS: BP 165/53
[2017-11-29 16:14] VITALS: BP 153/58
[2017-11-29] MEDS ORDERED: KEFLEX500 MG PO (18:18)
[2017-11-29 20:00] VITALS: BP 167/65
[2017-11-30 08:17] VITALS: BP 153/56
== END 2017-11-30 14:33 | disposition home or self-care (01) | DRG 699 ==
LOC: D.ER 10:12 → D.EDHOLD 14:56 → D.MS 14:56
PROVIDERS: Emergency Medicine; Family Medicine
DX: N28.9 Disorder of kidney and ureter, unspecified (principal); E87.2 Acidosis; L03.811 Cellulitis of head [any part, except face]; E11.65 Type 2 diabetes mellitus with hyperglycemia; E11.42 Type 2 diabetes mellitus with diabetic polyneuropathy; E87.6 Hypokalemia; E83.42 Hypomagnesemia; E78.5 Hyperlipidemia, unspecified; I10 Essential (primary) hypertension; I25.10 Atherosclerotic heart disease of native coronary artery without angina pectoris; Z95.5 Presence of coronary angioplasty implant and graft

== ENCOUNTER 2018-07-04 21:42 | Emergency (ER) | payer MEDICARE, MEDICAID ==
[~2018-07-04] VITALS: Ht 158.8 cm; Wt 77.3 kg
[~2018-07-04 21:42] MED LIST changes: +COZAAR100 MG PO; +HUMALOG 30100 UNITS/ SC; +KEFLEX500 MG PO
[2018-07-04 21:48] VITALS: Ht 158.8 cm; Wt 77.3 kg
[2018-07-04] MEDS ORDERED: HYDROCODON-ACE1 EAC7 PO (22:56)
[2018-07-04 23:23] VITALS: BP 147/79
== END 2018-07-04 23:24 | disposition home or self-care (01) ==
LOC: D.ER 21:42
DX: M79.604 Pain in right leg (principal); S99.911A Unspecified injury of right ankle, initial encounter; W18.31XA Fall on same level due to stepping on an object, initial encounter; Y93.89 Activity, other specified; Y92.019 Unspecified place in single-family (private) house as the place of occurrence of the external cause

== ENCOUNTER → 2018-07-24 14:23 | Outpatient (CLI) | payer MEDICARE, MEDICAID ==
[2018-07-04 21:48] VITALS: BMI 30.6
[~2018-07-24 14:23] MED LIST changes: +HYDROCODON-ACE1 EAC7 PO; +ZANAFLEX2 M1 PO
== END | disposition home or self-care (01) ==
LOC: D.MRI 14:23
PROVIDERS: ATTEND Orthopaedic Surgery
DX: M54.16 Radiculopathy, lumbar region (principal)

== ENCOUNTER 2018-07-27 18:55 | Inpatient (IN) | payer MEDICARE, MEDICAID ==
[~2018-07-27 18:55] MED LIST changes: +LYRICA100 MG PO; -LYRICA25 MG PO; -ZANAFLEX2 M1 PO
[2018-07-27] MEDS ORDERED: ZANAFLEX2 M1 PO (19:08)
[2018-07-27 20:00] LABS: BASOPHILS 0.1 % (0-2); EOSINOPHILS 2.9 % (0-7); HEMATOCRIT 29.8 % (36.0-48.0); HEMOGLOBIN 9.7 g/dL (12-16); IMMATURE GRANULOCYTES 0.1 % (0-5); LYMPHOCYTES 5.6 % (15-50); MCHC 32.6 g/dL (31.0-37.0); MCV 86.1 fL (80.0-100.0); MEAN PLATELET VOLUME 10.1 fL (7.4-10.4); MONOCYTES 5.3 % (2-11); PLATELET COUNT 270 10x3/uL (130-400); RBC 3.46 10x6/uL (4.00-5.40); RDW 13.4 % (11.5-14.5); WBC 13.6 10x3/uL (4.8-10.8)
[2018-07-27 20:11] LABS: ALBUMIN 2.9 g/dL (3.4-5.0); ANION GAP 15.3 mmol/L (8-16); BILIRUBIN - TOTAL 0.69 mg/dL (0.2-1.3); CALCIUM 8.6 mg/dL (8.5-10.1); CARBON DIOXIDE 20.3 mmol/L (21.0-32.0); CREATININE - SERUM 3.3 mg/dL (0.6-1.3); POTASSIUM - SERUM 5.6 mmol/L (3.5-5.1); PROTEIN - SERUM 6.9 g/dL (6.4-8.2)
--- NOTE | 2018-07-27 20:32 | NUR ---
PT GIVEN BLANKETS
--- NOTE | 2018-07-27 21:04 | NUR ---
PT AMBULATED TO RESTROOM INDEPENDENTLY.
[2018-07-27 21:14] LABS: APPEARANCE CLEAR (CLEAR); BILIRUBIN NEGATIVE (NEGATIVE); COLOR YELLOW (YELLOW); GLUCOSE 100 mg/dL (NEGATIVE); KETONE NEGATIVE (NEGATIVE); NITRITE NEGATIVE (NEGATIVE); PROTEIN NEGATIVE (NEGATIVE); SPECIFIC GRAVITY 1.015 (1.005-1.020); UROBILINOGEN NORMAL (NORMAL)
--- NOTE | 2018-07-27 22:40 | NUR ---
ADMITED FROM ER VIA WC TO ROOM 2101...TO LOW LOCKED BED AND SR X2 AND CALL LIGHT PLACED IN REACH EXAM DONE THEN ICE WATER AND TERMITE RENEWAL INSPECTOR SOCKS PLACED ON PT WELL TELEMETRY I V FLUIDS ARE DONE SO STARTED NS AT 125. LCTA BUT DEMINISHED SKIN DRY AND WARMNO WOUNDS OR SKIN ALTERATIONS NOTED PT ABLE T AMBULATE WITH NO ASSIST.
[2018-07-28] VITALS (7 sets, daily range): BP systolic 96–145; BP diastolic 52–64; BMI 30.6
--- NOTE | 2018-07-28 01:14 | NUR ---
RECHECKED GLUCOSE 277
[2018-07-28 04:26] LABS: BASOPHILS 0.4 % (0-2); EOSINOPHILS 6.5 % (0-7); HEMOGLOBIN 9.4 g/dL (12-16); IMMATURE GRANULOCYTES 0.2 % (0-5); LYMPHOCYTES 13.9 % (15-50); MCH 28.1 pg (26.0-34.0); MCHC 32.4 g/dL (31.0-37.0); MCV 86.8 fL (80.0-100.0); MEAN PLATELET VOLUME 10.2 fL (7.4-10.4); MONOCYTES 8.3 % (2-11); NEUTROPHILS 70.7 % (40-80); PLATELET COUNT 252 10x3/uL (130-400); RBC 3.34 10x6/uL (4.00-5.40); RDW 13.5 % (11.5-14.5)
[2018-07-28 04:47] LABS: ANION GAP 18.8 mmol/L (8-16); CALCIUM 8.6 mg/dL (8.5-10.1); CREATININE - SERUM 2.8 mg/dL (0.6-1.3); MAGNESIUM - SERUM 1.6 mg/dL (1.8-2.4); PHOSPHOROUS 4.1 mg/dL (2.5-4.9); POTASSIUM - SERUM 4.8 mmol/L (3.5-5.1)
--- NOTE | 2018-07-28 08:49 | NUR ---
ALERT AND ORIENTED RESP EVEN AND UNLABORED. BREATH SOUNDS CTA. UP ADLIB WITH SKIN INTACT. TELEMETRY SR. DENIES ANY PAIN OR DISCOMFORT. ENCOURAGED TO USE CALL LIGHT FOR ASSSIT.
--- NOTE | 2018-07-28 19:22 | NUR ---
RECEIVED REPORT, WILL ASSUME CARE OF PT, PT SITTING ON SIDE OF BED, DENIES ANY NEEDS AT THIS TIME, BED IS LOW, SRX2, CALL LIGHT IN REACH, WILL CONTINUE PLAN OF CARE
--- NOTE | 2018-07-28 20:59 | NUR ---
BS-341 COVERED 25 UNITS OF LANTUS-12 UNITS OF HUMULIN R, PROVIDED A SNACK
--- NOTE | 2018-07-28 23:33 | NUR ---
REQUESTING TO HAVE B/S CHECKED-232
[2018-07-29] VITALS: BP 108/43
[2018-07-29 03:00] VITALS: BP 151/58
--- NOTE | 2018-07-29 03:33 | NUR ---
I have reviewed this patient and I concur with the Shift Assessment completed by the Licensed Practical Nurse today this shift.
--- NOTE | 2018-07-29 03:45 | NUR ---
SITTING UP ON SIDE OF BED, DENIES ANY NEEDS AT THIS TIME, FAMILY AT BEDSIDE
--- NOTE | 2018-07-29 07:16 | NUR ---
REPORT RECEIVED. WILL CONTINUE WITH POC. PT CURRENTLY LYING ON RIGHT SIDE. CALL LIGHT W/I REACH. PT IS RESTING AT THE MOMENT. RR EVEN AND UNLABORED ON RA. NS INFUSING @125ML/HR VIA R.FOR PIV. FAMILY AT BEDSIDE. NO S/S OF DISTRESS NOTED. WILL CTM.
[2018-07-29 08:44] VITALS: BP 153/71
[2018-07-29 10:36] LABS: ANION GAP 16.4 mmol/L (8-16); CALCIUM 8.4 mg/dL (8.5-10.1); CARBON DIOXIDE 17.1 mmol/L (21.0-32.0); POTASSIUM - SERUM 4.5 mmol/L (3.5-5.1)
[2018-07-29 10:40] LABS: CREATININE - SERUM 1.5 mg/dL (0.6-1.3)
--- NOTE | 2018-07-29 12:48 | MORECARE ---
CASE MANAGEMENT DISCHARGE SUMMARY PATIENT: ZULY MARES UNIT: [id number] ADM DATE: 07/27/18 AGE: 68 : 50 SEX: F ROOM/BED: D.2102 AUTHOR: NORMA,DOC PHYSICIAN: REFERRING PHYSICIAN: MIRYAM OLIVA MD DATE OF SERVICE: 07/29/18 Discharge Plan Patient Name: ZULY MARES Facility: [facility]:[place] : 1950 Planned Disposition: Home Anticipated Discharge Date: Discharge Date: Expected LOS: Initial Reviewer: [email or web address] Initial Review Date: 07/29/2018 Generated: 07/29/18 1:47 pm Comments DCP- Discharge Planning Updated by [email or web address]: Yarelis Saini on 07/29/18 11:[address] Patient Name: ZULY MARES Admission Status: ER Accout number: [id number] Admission Date: 07-27-2018 : 1950 Admission Diagnosis:DIARRHEA, UNSPECIFIED Attending: MIRYAM OLIVA Current LOS: 2 Anticipated DC Date: Planned Disposition: Home Primary Insurance: [facility] MEDICARE SOLUTIONS Discharge Planning Comments: CM met with patient about discharge planning. CM explained CM role and verbal consent was given to do dc assessment. CM educated on Home Health, DME and rehab services that are available. Patient states her discharge plan is to return to home . States home environment is safe. Denies any discharge planning needs at this time. States [facility] will drive her home upon discharge. CM will continue to follow and assist as needed with discharge planning needs. Junk Dealer: Yarelis Saini DCPIA - Discharge Planning Initial Assessment Updated by [id number]: Yarelis Saini on 07/29/18 12:43 pm * Is the patient Alert and Oriented? Yes * How many steps to enter\exit or inside your home? na * PCP [facility] * Pharmacy [facility] * Preadmission Environment Home with Family * ADLs Independent * Equipment None * List name and contact numbers for known caregivers / representatives who currently or will assist patient after discharge: luisa Fink * Verbal permission to speak to the caregivers and representatives has been obtained from the patient. N/A * Community resources currently utilized None * Additional services required to return to the preadmission environment? No * Can the patient safely return to the preadmission environment? Yes * Has this patient been hospitalized within the prior 30 days at any hospital? No Coverage Notice Reviewer: [id number] Leslie Saini Notice Issued Date-Time: 07/29/2018 12:35 Notice Type: IM Discharge Notice Notice Delivered To: Patient Relationship to Patient: Self Centerless Grinder Tender Name: Delivery Method: HAND - Hand Delivered Tiffany Days: Prior Verbal Notification: Recipient Understood Notice: Yes Recipient Signature: Yes Med Rec Note Co-signed by Attending: Coverage Notice Comment: Patient Name: ZULY MARES Page [phone] at 1248 All edits/amendments must be made on the electronic document DICTATION DATE: 07/29/181246 PATTERN GRADER: SUNIL 07/29/181246 RPT#: [id number] DC DATE: STATUS: ADM IN [facility] [address] [place] [address] END OF REPORT
--- NOTE | 2018-07-29 13:27 | NUR ---
PT DISCHARGED HOME VIA WHEELCHAIR WITH FAMILY. PIV REMOVED WITH CATHETER TIP FULLY INTACTY. TELEMETRY REMOVED AND RETURNED. PT SIGNED PROPER DISCHARGE INSTRUCTION AND REMOVED ALL VALUABLES FROM THE ROOM.
[2018-07-29 13:31] VITALS: BP 165/84
--- NOTE | 2018-07-29 21:05 | HP ---
PATIENT: ZULY MARES MEDICAL RECORD: [id number] ACCOUNT: [id number] LOCATION:[address] : [birth year] ADMISSION DATE: 07/27/18 PCP: CIERRA GUPTA MD HISTORY AND PHYSICAL EXAMINATION DATE OF ADMISSION: 07/27/2018 CHIEF COMPLAINT: Diarrhea and weakness for the last week. HISTORY OF PRESENT ILLNESS: This 68-year-old female presented to the ER complaining of diarrhea for the last week. She denies fever, chest pain, or chills. She has some nausea, but no vomiting. She has had some right arm pain as well. In the ER, her blood pressure was 109/41, heart rate was 84. CBC showed a white count of 13,600, hemoglobin 9.7 (has chronic anemia). Her sodium was low at 129, potassium high at 5.6, BUN and creatinine were 38 and 3.3 respectively, and glucose was 447. She is a diabetic. Her alkaline phosphatase is high at 621. Her other liver enzymes were okay. Urinalysis was okay except for urine glucose. She is admitted for dehydration, acute kidney injury, and acute diarrhea. PAST MEDICAL AND SURGICAL HISTORY: She has asthma, pneumonia in 2017, poorly controlled diabetes, hyperlipidemia, hypertension, peripheral neuropathy, coronary artery disease, and peripheral vascular disease. PAST SURGICAL HISTORY: Cholecystectomy, cardiac stents times 6. ALLERGIES: SULFA, ASPIRIN, LEVAQUIN, GABAPENTIN, AND VITAMIN A. HOME MEDICATIONS: Cetirizine 10 mg once a day, albuterol (Proventil HFA) 2 puffs b.i.d., Plavix 75 mg once a day, carvedilol 6.25 mg twice a day, losartan 100 mg once a day, Lyrica 100 mg 3 times a day, Tylenol 500 mg every 6 hours p.r.n. pain or fever, Dulera two puffs twice a day, Restasis eye drops OU, Protonix 40 mg once a day, Lantus insulin 25 units subcutaneously twice a day, Humalog via sliding scale. SOCIAL HISTORY: . Retired. HABITS: Has never smoked, but has been exposed to secondhand smoke. Denies alcohol or drug use. REVIEW OF SYSTEMS: GENERAL: She has had no fever, but has had some nausea and the diarrhea and therefore weakness. HEENT: No particular sinus or allergy problems. RESPIRATORY: She has history of asthma, occasional wheezing. CARDIAC: No palpitations or chest pain. ENDOCRINE: She has poorly controlled diabetes, but denies symptoms. MUSCULOSKELETAL: Few aches and pains, mostly in knees and hips. NEUROLOGIC: She has diabetic peripheral neuropathy and takes Lyrica. PSYCHIATRIC: Denies depression. PHYSICAL EXAMINATION: VITAL SIGNS: Temperature 98.4, pulse 84, respirations 20, blood pressure 109/41, O2 sat 97%. GENERAL: She is awake and alert. She is feeling some better already after she HISTORY AND PHYSICAL [id number] MARES,ZULY CASTELLON has gotten some IV fluids. HEENT: Unremarkable. NECK: Supple. HEART: Regular rate and rhythm. LUNGS: Fairly clear. No wheeze. ABDOMEN: Soft, nontender. EXTREMITIES: No edema. LABORATORY DATA: CBC with a white count of 13,600, hemoglobin 9.7. Sodium 129, potassium 5.6, BUN 38, creatinine 3.3, glucose was 447. Liver enzymes were all okay except alkaline phosphatase was 621. Urinalysis was clear except for some glucose. ASSESSMENT: 1. Acute kidney injury on chronic kidney disease. 2. Diarrhea. 3. Dehydration due to diarrhea. 4. Poorly controlled diabetes. PLAN: IV fluids. Monitor diabetes. Monitor blood pressure. The patient is already wanting to go home, and we will see how she does. TRANSINT:[id number] Voice Confirmation ID: [id number] DOCUMENT ID: [id number] CIERRA GUPTA MD at 2105 CC: [id number] DICTATION DATE: 07/29/18 1153 NEGATIVE RETOUCHER: 07/29/18 1213 DIS IN 07/29/18 [place] [id number] [place] [id number]
--- NOTE | 2018-07-31 08:36 | MORECARE ---
CASE MANAGEMENT DISCHARGE SUMMARY PATIENT: ZULY MARES UNIT: [id number] ADM DATE: 07/27/18 AGE: 68 : 50 SEX: F ROOM/BED: D.2102 AUTHOR: NORMA,DOC PHYSICIAN: REFERRING PHYSICIAN: MIRYAM OLIVA MD DATE OF SERVICE: 07/31/18 Discharge Plan Patient Name: ZULY MARES Facility: [facility]:[place] : 1950 Planned Disposition: Home Anticipated Discharge Date: 07/29/18 Discharge Date: 07/29/2018 Expected LOS: 2 Initial Reviewer: ANGELA Initial Review Date: 07/29/2018 Generated: 07/31/18 9:35 am Comments DCP- Discharge Planning Updated by [id number]: Yarelis Saini on 07/29/18 11:[address] Patient Name: ZULY MARES Admission Status: ER Accout number: [id number] Admission Date: 07-27-2018 : 1950 Admission Diagnosis:DIARRHEA, UNSPECIFIED Attending: MIRYAM OLIVA Current LOS: 2 Anticipated DC Date: Planned Disposition: Home Primary Insurance: [facility] MEDICARE SOLUTIONS Discharge Planning Comments: CM met with patient about discharge planning. CM explained CM role and verbal consent was given to do dc assessment. CM educated on Home Health, DME and rehab services that are available. Patient states her discharge plan is to return to home . States home environment is safe. Denies any discharge planning needs at this time. [facility] drive her home upon discharge. CM will continue to follow and assist as needed with discharge planning needs. Family Medicine Resident: Yarelis Saini DCPIA - Discharge Planning Initial Assessment Updated by [id number]: Yarelis Saini on 07/29/18 12:43 pm * Is the patient Alert and Oriented? Yes * How many steps to enter\exit or inside your home? na * PCP [facility] * [facility] * Preadmission Environment Home with Family * ADLs Independent * Equipment None * List name and contact numbers for known caregivers / representatives who currently or will assist patient after discharge: luisa Fink * Verbal permission to speak to the caregivers and representatives has been obtained from the patient. N/A * Community resources currently utilized None * Additional services required to return to the preadmission environment? No * Can the patient safely return to the preadmission environment? Yes * Has this patient been hospitalized within the prior 30 days at any hospital? No Coverage Notice Reviewer: [id number] Leslie Saini Notice Issued Date-Time: 07/29/2018 12:35 Notice Type: IM Discharge Notice Notice Delivered To: Patient Relationship to Patient: Self Energy Attorney Name: Delivery Method: HAND - Hand Delivered Tiffany Days: Prior Verbal Notification: Recipient Understood Notice: Yes Recipient Signature: Yes Med Rec Note Co-signed by Attending: Coverage Notice Comment: Last DP export: 07/29/18 11:47 am Patient Name: ZULY MARES Page [id number] at 0836 All edits/amendments must be made on the electronic document DICTATION DATE: 07/31/18834 VULNERABILITY RESEARCHER: SUNIL 07/31/1835 RPT#: [id number] DC DATE:07/29/18 STATUS: DIS IN [facility] [address] [place] [address] END OF REPORT
--- NOTE | 2018-07-31 08:42 | MORECARE ---
CASE MANAGEMENT DISCHARGE SUMMARY PATIENT: ZULY MARES UNIT: [id number] ADM DATE: 07/27/18 AGE: 68 : 50 SEX: F ROOM/BED: D.2102 AUTHOR: NORMA,DOC PHYSICIAN: REFERRING PHYSICIAN: MIRYAM OLIVA MD DATE OF SERVICE: 07/31/18 Discharge Plan Patient Name: ZULY MARES Facility: [facility]:[place] : 1950 Planned Disposition: Home Anticipated Discharge Date: 07/29/18 Discharge Date: 07/29/2018 Expected LOS: 2 Initial Reviewer: ANGELA Initial Review Date: 07/29/2018 Generated: 07/31/18 9:42 am Comments DCP- Discharge Planning Updated by [email or web address]: Yarelis Saini on 07/29/18 11:[address] Patient Name: ZULY MARES Admission Status: ER Accout number: [id number] Admission Date: 07-27-2018 : 1950 Admission Diagnosis:DIARRHEA, UNSPECIFIED Attending: MIRYAM OLIVA Current LOS: 2 Anticipated DC Date: Planned Disposition: Home Primary Insurance: [facility] MEDICARE SOLUTIONS Discharge Planning Comments: CM met with patient about discharge planning. CM explained CM role and verbal consent was given to do dc assessment. CM educated on Home Health, DME and rehab services that are available. Patient states her discharge plan is to return to home . States home environment is safe. Denies any discharge planning needs at this time. States [facility] her home upon discharge. CM will continue to follow and assist as needed with discharge planning needs. Medicaid Analyst: Yarelis Saini DCPIA - Discharge Planning Initial Assessment Updated by [email or web address]: Yarelis Saini on 07/29/18 12:43 pm * Is the patient Alert and Oriented? Yes * How many steps to enter\exit or inside your home? na * PCP [facility] * [facility] * Preadmission Environment Home with Family * ADLs Independent * Equipment None * List name and contact numbers for known caregivers / representatives who currently or will assist patient after discharge: luisa Fink * Verbal permission to speak to the caregivers and representatives has been obtained from the patient. N/A * Community resources currently utilized None * Additional services required to return to the preadmission environment? No * Can the patient safely return to the preadmission environment? Yes * Has this patient been hospitalized within the prior 30 days at any hospital? No Coverage Notice Reviewer: [id number] Leslie Saini Notice Issued Date-Time: 07/29/2018 12:35 Notice Type: IM Discharge Notice Notice Delivered To: Patient Relationship to Patient: Self Health Care Aide Name: Delivery Method: HAND - Hand Delivered Tiffany Days: Prior Verbal Notification: Recipient Understood Notice: Yes Recipient Signature: Yes Med Rec Note Co-signed by Attending: Coverage Notice Comment: Last DP export: 07/29/18 11:47 am Patient Name: ZULY MARES Page 16463 at 0842 All edits/amendments must be made on the electronic document DICTATION DATE: 07/31/18841 EAR MOLD LABORATORY TECHNICIAN: SUNLI 07/31/18841 RPT#: [id number] DC DATE:07/29/18 STATUS: DIS IN [facility] [address] [place] [address] END OF REPORT
== END 2018-07-29 13:46 | disposition home or self-care (01) | DRG 641 ==
LOC: D.ER 18:55 → D.M2 21:22
PROVIDERS: Family Medicine; ADMIT Family Medicine; ATTEND Family Medicine
DX: E86.0 Dehydration (principal); N17.9 Acute kidney failure, unspecified; D64.9 Anemia, unspecified; E87.5 Hyperkalemia; I49.3 Ventricular premature depolarization; R19.7 Diarrhea, unspecified; E11.22 Type 2 diabetes mellitus with diabetic chronic kidney disease; I12.9 Hypertensive chronic kidney disease with stage 1 through stage 4 chronic kidney disease, or unspecified chronic kidney disease; N18.9 Chronic kidney disease, unspecified; E11.51 Type 2 diabetes mellitus with diabetic peripheral angiopathy without gangrene

== ENCOUNTER 2019-01-08 08:00 | Outpatient (CLI) | payer MEDICARE, MEDICAID ==
[2018-07-28 12:15] VITALS: BMI 30.6
[~2019-01-08 08:00] MED LIST changes: +ZANAFLEX2 M1 PO
== END 2019-01-08 23:59 | disposition home or self-care (01) ==
LOC: D.MAMMO 08:00
PROVIDERS: ATTEND Family Medicine
DX: Z12.31 Encounter for screening mammogram for malignant neoplasm of breast (principal)

== ENCOUNTER 2019-06-19 11:00 | Outpatient (CLI) | payer MEDICARE, MEDICAID ==
[2018-07-28 12:15] VITALS: BMI 30.6
== END 2019-06-19 12:00 | disposition home or self-care (01) ==
LOC: D.MAMMO 11:00
PROVIDERS: ATTEND Family Medicine
DX: R92.8 Other abnormal and inconclusive findings on diagnostic imaging of breast (principal)